=== PATIENT | male | born 1950 | race Caucasian/White ===

== ENCOUNTER → 2018-01-06 | Outpatient (CLI) | payer BC, MEDICARE ==
[~2018-01-06] MED LIST: VASOTEC20 MG PO
[2018-01-06 14:01] LABS: HEMOGLOBIN 14.4 g/dl (13.5-18.0); MEAN CELL VOLUME 86 fl (80.0-100.0); MEAN CORPUSCULAR HEMOGLOBIN 30 pg (27.0-31.0); MEAN CORPUSCULAR HGB CONC 34 g/dl (33.0-37.0); MEAN PLATELET VOLUME 11.9 fl (7.4-10.4); PLATELET COUNT 234 K/mm3 (130-400); RED BLOOD COUNT 4.88 M/mm3 (4.20-5.60); REDCELL DISTRIBUTION WIDTH-CV 13.2 % (11.5-14.5)
[2018-01-06 14:05] LABS: MUCOUS Present /lpf; PH 5 (5-8); SQUAMOUS EPITHELIAL None Seen /hpf; URINE APPEARANCE Clear; URINE BACTERIA None Seen /hpf; URINE BILIRUBIN Negative (NEGATIVE); URINE BLOOD 2+ (NEGATIVE); URINE COLOR Yellow; URINE GLUCOSE Negative (NEGATIVE); URINE KETONE 1+ (NEGATIVE); URINE LEUKOCYTE ESTERASE Negative (NEGATIVE); URINE NITRATE Negative (NEGATIVE); URINE PROTEIN(semi-quant) Negative (NEGATIVE); URINE WBC 0-2 /hpf
[2018-01-06 14:09] LABS: ALBUMIN 4.7 gm/dL (3.5-5.0); BILIRUBIN,TOTAL 1.7 mg/dL (0.0-1.0); CALCIUM 8.9 mg/dL (8.4-10.2); CREATININE, serum 1.14 mg/dL (0.66-1.25); POTASSIUM 3.4 mmol/L (3.4-5.0); TOTAL PROTEIN 7.7 gm/dL (6.4-8.2)
[2018-01-06 14:32] LABS: COLLECTION METHOD CLEAN CATCH
== END ==
LOC: COL.RAD 13:27
PROVIDERS: Emergency Medicine
DX: N32.89 Other specified disorders of bladder (principal); G20 Parkinson's disease
CPT/HCPCS: Q9967

== ENCOUNTER 2018-03-01 16:19 | Outpatient (CLI) | payer BC, MEDICARE ==
[~2018-03-01] VITALS: Ht 167.6 cm; Wt 80.0 kg
[2018-03-01] MEDS ORDERED: SINEMET CR1 UDTAB.S1 PO (17:55)
[2018-03-01] MEDS ORDERED: REQUIP2 MG PO (17:56)
[2018-03-01] MEDS ORDERED: HCTZ 25MG TAB25 MG PO (17:56)
[2018-03-01 18:00] VITALS: BP 158/81; PULSE 83; TEMP 98
== END 2018-03-01 20:00 | disposition home or self-care (01) ==
LOC: EUO 16:19
DX: R11.2 Nausea with vomiting, unspecified (principal)
CPT/HCPCS: J2405

== ENCOUNTER 2018-03-04 09:18 | Inpatient (IN) | payer BC, MEDICARE ==
[~2018-03-04] VITALS: Ht 165.1 cm; Wt 77.1 kg
[~2018-03-04 09:18] MED LIST changes: +HCTZ 25MG TAB25 MG PO; +REQUIP2 MG PO; +SINEMET CR1 UDTAB.S1 PO
[2018-03-04 09:56] LABS: BASO # 0.1 (0.0-0.2); BASO % 0.6 % (0.0-2.0); EOS % 0.1 % (0-4.0); GRAN # 7.9 (1.4-6.5); GRAN % 89.7 % (42.2-75.2); HEMATOCRIT 42.6 % (42.0-52.0); HEMOGLOBIN 14.9 g/dl (13.5-18.0); LYMPH # 0.5 (1.2-3.4); LYMPH % 5.6 % (20.0-51.0); MEAN CELL VOLUME 85 fl (80.0-100.0); MEAN CORPUSCULAR HEMOGLOBIN 30 pg (27.0-31.0); MEAN CORPUSCULAR HGB CONC 35 g/dl (33.0-37.0); MEAN PLATELET VOLUME 12.2 fl (7.4-10.4); MONO # 0.3 (0.1-0.6); MONO % 3.7 % (1.7-9.3); PLATELET COUNT 272 K/mm3 (130-400); RED BLOOD COUNT 5.04 M/mm3 (4.20-5.60); REDCELL DISTRIBUTION WIDTH-CV 14.1 % (11.5-14.5)
[2018-03-04 10:09] LABS: ALANINE AMINOTRANSFERASE 68 U/L (21-72); ALBUMIN 4.3 gm/dL (3.5-5.0); ALKALINE PHOSPHATASE 62 U/L (50-136); ANION GAP 16 mmol/L (7-16); AST,SGOT 45 U/L (15-37); BILIRUBIN,TOTAL 1.2 mg/dL (0.0-1.0); BLOOD UREA NITROGEN 41 mg/dL (9-20); CALCIUM 9.5 mg/dL (8.4-10.2); CARBON DIOXIDE 27 mmol/L (22-30); CHLORIDE 96 mmol/L (98-107); CREATININE, serum 1.56 mg/dL (0.66-1.25); GLUCOSE 140 mg/dL (74-106); LIPASE 67 U/L (23-300); POTASSIUM 3.2 mmol/L (3.4-5.0); SODIUM 138 mmol/L (137-145); TOTAL PROTEIN 8.1 gm/dL (6.4-8.2)
[2018-03-04 10:11] LABS: C-REACTIVE PROTEIN < 0.5 mg/dL (0.0-0.9)
[2018-03-04] MEDS ORDERED: ZOFRAN ODT4 MG PO (10:15)
[2018-03-04] MEDS ORDERED: PHENERGAN25 MG RC (10:15)
[2018-03-04] MEDS ORDERED: CELEBREX 200MG200 MG PO (10:15)
[2018-03-04 11:38] LABS: COLLECTION METHOD CLEAN CATCH
[2018-03-04 11:59] LABS: MUCOUS Present /lpf; PH 5 (5-8); SQUAMOUS EPITHELIAL 0-2 /hpf; URINE APPEARANCE Hazy; URINE BACTERIA None Seen /hpf; URINE BILIRUBIN Negative (NEGATIVE); URINE BLOOD 2+ (NEGATIVE); URINE COLOR Yellow; URINE GLUCOSE Negative (NEGATIVE); URINE KETONE Negative (NEGATIVE); URINE LEUKOCYTE ESTERASE Negative (NEGATIVE); URINE NITRATE Negative (NEGATIVE); URINE PROTEIN(semi-quant) 1+ (NEGATIVE)
[2018-03-04 13:12] VITALS: BP 178/88; PULSE 89; TEMP 98.7
[2018-03-04 15:54] VITALS: BP 149/55; PULSE 73; TEMP 98.3
[2018-03-04 16:26] VITALS: BP 159/81; PULSE 91; TEMP 99.1
[2018-03-04 20:28] VITALS: BP 92/54; PULSE 83; TEMP 99.1
[2018-03-05] VITALS (17 sets, daily range): BP systolic 95–195; BP diastolic 47–96; PULSE 66–80; TEMP 98.1–99.1
[2018-03-05 06:54] LABS: CALCIUM 8.2 mg/dL (8.4-10.2); CREATININE, serum 1.14 mg/dL (0.66-1.25); POTASSIUM 3.6 mmol/L (3.4-5.0)
[2018-03-06 04:51] VITALS: BP 180/88; PULSE 79; TEMP 99
[2018-03-06 06:24] LABS: BILIRUBIN UNCONJUGATED 1.5 mg/dL (0.0-1.1); BILIRUBIN,DIRECT 0.4 mg/dL (0.0-0.4); BILIRUBIN,TOTAL 1.9 mg/dL (0.0-1.0)
[2018-03-06 06:26] LABS: ALBUMIN 3.2 gm/dL (3.5-5.0); TOTAL PROTEIN 6.1 gm/dL (6.4-8.2)
[2018-03-06 06:29] VITALS: BP 170/92
[2018-03-06 07:31] VITALS: BP 179/92; PULSE 84; TEMP 98.7
[2018-03-06 12:37] VITALS: BP 185/92; PULSE 78; TEMP 99.4
[2018-03-06 16:22] VITALS: BP 128/69; PULSE 70; TEMP 99.1
[2018-03-06 19:40] VITALS: BP 123/55; PULSE 70; TEMP 98.7
[2018-03-07 00:07] VITALS: BP 110/60; PULSE 72; TEMP 98.5
[2018-03-07 04:09] VITALS: BP 160/96; PULSE 88; TEMP 98.7
[2018-03-07 07:20] VITALS: BP 183/89; PULSE 82; TEMP 98.2
[2018-03-07 10:50] VITALS: BP 179/86; PULSE 87; TEMP 98.4
[2018-03-07 15:24] VITALS: BP 137/78; PULSE 73; TEMP 98.6
[2018-03-07 20:30] VITALS: BP 123/68; PULSE 73; TEMP 97.9
[2018-03-08 00:10] VITALS: BP 138/70; PULSE 68; TEMP 98.2
[2018-03-08 03:56] VITALS: BP 174/79; PULSE 87; TEMP 98.2
[2018-03-08 07:27] VITALS: BP 186/97; PULSE 87; TEMP 98.6
[2018-03-08 11:15] VITALS: BP 177/89; PULSE 79; TEMP 99.1
[2018-03-08 16:18] VITALS: BP 107/68; PULSE 75; TEMP 98
[2018-03-08 19:58] VITALS: BP 109/65; PULSE 69; TEMP 98.2
[2018-03-09 04:13] VITALS: BP 155/82; PULSE 76; TEMP 97.7
[2018-03-09 07:33] VITALS: BP 185/97; PULSE 105; TEMP 98.6
[2018-03-09 11:29] VITALS: BP 180/87; PULSE 93; TEMP 98.6
[2018-03-09] MEDS ORDERED: BIAXIN 500MG T500 MG PO (14:10)
[2018-03-09] MEDS ORDERED: AMOXICILLIN 50500 MG PO (14:11)
[2018-03-09] MEDS ORDERED: NORVASC 5MG5 MG/TAB PO (14:13)
[2018-03-09] MEDS ORDERED: PROTONIX 40MG T40 MG PO (14:22)
[2018-03-09] MEDS ORDERED: LEADER CLE17 GM/Dose PO (14:24)
== END 2018-03-09 15:22 | DRG 392 ==
LOC: COL.ER 09:18 → SURG 12:19
PROVIDERS: Emergency Medicine; Internal Medicine Gastroenterology
PROC: 0DB68ZX Excision of Stomach, Via Natural or Artificial Opening Endoscopic, Diagnostic (ICD-10-PCS; principal; 2018-03-05 08:30)
DX: K29.30 Chronic superficial gastritis without bleeding (principal); N17.9 Acute kidney failure, unspecified; E44.0 Moderate protein-calorie malnutrition; B96.81 Helicobacter pylori [H. pylori] as the cause of diseases classified elsewhere; K29.60 Other gastritis without bleeding; E86.0 Dehydration; G20 Parkinson's disease; I10 Essential (primary) hypertension; E80.4 Gilbert syndrome; N20.0 Calculus of kidney
CPT/HCPCS: A9541; C9113; J1956; J2250; J2405; J3010; J3480; J7030

== ENCOUNTER 2018-03-09 15:40 | Inpatient (IN) | payer BC, MEDICARE ==
[~2018-03-09] VITALS: Ht 165.1 cm; Wt 78.5 kg
[~2018-03-09 15:40] MED LIST changes: +AMOXICILLIN 50500 MG PO; +BIAXIN 500MG T500 MG PO; +CELEBREX 200MG200 MG PO; +LEADER CLE17 GM/Dose PO; +NORVASC 5MG5 MG/TAB PO; +PHENERGAN25 MG RC; +PROTONIX 40MG T40 MG PO; +ZOFRAN ODT4 MG PO
[2018-03-09 16:19] VITALS: BP 93/52; PULSE 82; TEMP 98.6
[2018-03-09 17:00] VITALS: BP 93/52; PULSE 82; TEMP 98.6
[2018-03-09 21:52] VITALS: BP 102/65; PULSE 73; TEMP 98.2
[2018-03-10 06:10] VITALS: BP 127/83; PULSE 82; TEMP 98.7
[2018-03-10 16:37] VITALS: BP 95/52; PULSE 79; TEMP 98.4
[2018-03-11 06:19] VITALS: BP 125/68; PULSE 72; TEMP 98.4
[2018-03-11 17:18] VITALS: BP 103/55; PULSE 82; TEMP 97.9
[2018-03-12 06:10] VITALS: BP 134/86; PULSE 79; TEMP 98
[2018-03-12 15:23] VITALS: BP 88/47; PULSE 80; TEMP 97.7
[2018-03-13 06:00] VITALS: BP 98/61; PULSE 77; TEMP 98
[2018-03-13 14:50] VITALS: BP 99/49; PULSE 81; TEMP 97.4
[2018-03-13 21:00] VITALS: BP 122/53; PULSE 84; TEMP 97.1
[2018-03-14 06:19] VITALS: BP 153/83; PULSE 89; TEMP 98
[2018-03-14 18:25] VITALS: BP 100/56; PULSE 91; TEMP 98.4
[2018-03-15 03:47] VITALS: BP 106/53; PULSE 74; TEMP 98.1
[2018-03-15 16:33] VITALS: BP 91/50; PULSE 91; TEMP 98.2
[2018-03-16 05:29] VITALS: BP 131/65; PULSE 89; TEMP 97.2
[2018-03-16] MEDS ORDERED: VASOTEC 10M10 MG/TAB PO (07:52)
[2018-03-16] MEDS ORDERED: REQUIP 1MG T1 MG/TAB PO ×2 (07:52)
[2018-03-16] MEDS ORDERED: LAMISIL1% TP (07:52)
== END 2018-03-16 12:45 | disposition home or self-care (01) | DRG 57 ==
DX: G20 Parkinson's disease (principal); I10 Essential (primary) hypertension; K29.60 Other gastritis without bleeding; B96.81 Helicobacter pylori [H. pylori] as the cause of diseases classified elsewhere; R11.2 Nausea with vomiting, unspecified
CPT/HCPCS: 99222-AI; 99232-AI; 99238

== ENCOUNTER 2018-03-22 14:18 | Observation (INO) | payer BC, MEDICARE ==
[~2018-03-22] VITALS: Ht 165.1 cm; Wt 74.5 kg
[~2018-03-22 14:18] MED LIST changes: +LAMISIL1% TP; +REQUIP 1MG T1 MG/TAB PO; +VASOTEC 10M10 MG/TAB PO
[2018-03-22 14:51] LABS: BASO # 0.1 (0.0-0.2); BASO % 0.5 % (0.0-2.0); EOS % 0.2 % (0-4.0); GRAN # 11.3 (1.4-6.5); GRAN % 85.6 % (42.2-75.2); HEMOGLOBIN 13.2 g/dl (13.5-18.0); LYMPH # 0.9 (1.2-3.4); LYMPH % 6.4 % (20.0-51.0); MEAN CELL VOLUME 84 fl (80.0-100.0); MEAN CORPUSCULAR HEMOGLOBIN 29 pg (27.0-31.0); MEAN CORPUSCULAR HGB CONC 35 g/dl (33.0-37.0); MEAN PLATELET VOLUME 11.6 fl (7.4-10.4); MONO # 0.9 (0.1-0.6); MONO % 6.9 % (1.7-9.3); PLATELET COUNT 247 K/mm3 (130-400); RED BLOOD COUNT 4.52 M/mm3 (4.20-5.60); REDCELL DISTRIBUTION WIDTH-CV 13.7 % (11.5-14.5)
[2018-03-22 15:04] LABS: ALANINE AMINOTRANSFERASE 17 U/L (21-72); ALBUMIN 4.2 gm/dL (3.5-5.0); ALKALINE PHOSPHATASE 53 U/L (50-136); ANION GAP 14 mmol/L (7-16); AST,SGOT 22 U/L (15-37); BILIRUBIN,TOTAL 1.9 mg/dL (0.0-1.0); BLOOD UREA NITROGEN 42 mg/dL (9-20); CALCIUM 9.7 mg/dL (8.4-10.2); CARBON DIOXIDE 24 mmol/L (22-30); CHLORIDE 95 mmol/L (98-107); CREATININE, serum 2.37 mg/dL (0.66-1.25); GLUCOSE 134 mg/dL (74-106); PHOSPHOROUS 4.7 mg/dL (2.5-4.5); SODIUM 133 mmol/L (137-145); TOTAL PROTEIN 7.6 gm/dL (6.4-8.2)
[2018-03-22] MEDS ORDERED: REQUIP2 MG PO (15:08)
[2018-03-22] MEDS ORDERED: NORVASC2.5 MG PO (15:08)
[2018-03-22 15:14] LABS: TROPONIN-I < 0.012 ng/mL (0.000-0.034)
[2018-03-22 18:33] VITALS: BP 117/62; PULSE 77; TEMP 97.7
[2018-03-22 19:39] LABS: COLLECTION METHOD CLEAN CATCH
[2018-03-22 19:47] LABS: MUCOUS Present /lpf; PH 5 (5-8); SQUAMOUS EPITHELIAL 0-2 /hpf; URINE APPEARANCE Hazy; URINE BACTERIA Rare /hpf; URINE BILIRUBIN Negative (NEGATIVE); URINE BLOOD 1+ (NEGATIVE); URINE COLOR Yellow; URINE GLUCOSE Negative (NEGATIVE); URINE KETONE Trace (NEGATIVE); URINE LEUKOCYTE ESTERASE Negative (NEGATIVE); URINE NITRATE Negative (NEGATIVE); URINE PROTEIN(semi-quant) Negative (NEGATIVE); URINE RBC 0-2 /hpf; URINE UROBILINOGEN Negative (NEGATIVE)
[2018-03-22 20:42] VITALS: BP 78/45; PULSE 70
[2018-03-22 21:10] VITALS: BP 83/47
[2018-03-22 21:49] VITALS: BP 76/46; PULSE 65
[2018-03-22 23:13] VITALS: BP 81/41; PULSE 60; TEMP 98.1
[2018-03-23] VITALS (7 sets, daily range): BP systolic 89–137; BP diastolic 48–73; PULSE 57–91; TEMP 98.1–98.9
[2018-03-23 07:22] LABS: BASO # 0.1 (0.0-0.2); BASO % 1.4 % (0.0-2.0); EOS % 0.8 % (0-4.0); GRAN # 3.7 (1.4-6.5); GRAN % 74.1 % (42.2-75.2); HEMATOCRIT 38.1 % (42.0-52.0); HEMOGLOBIN 12.9 g/dl (13.5-18.0); LYMPH # 0.8 (1.2-3.4); LYMPH % 16.4 % (20.0-51.0); MEAN CELL VOLUME 87 fl (80.0-100.0); MEAN CORPUSCULAR HEMOGLOBIN 29 pg (27.0-31.0); MEAN CORPUSCULAR HGB CONC 34 g/dl (33.0-37.0); MONO # 0.4 (0.1-0.6); MONO % 7.1 % (1.7-9.3); PLATELET COUNT 211 K/mm3 (130-400); RED BLOOD COUNT 4.39 M/mm3 (4.20-5.60); REDCELL DISTRIBUTION WIDTH-CV 13.7 % (11.5-14.5)
[2018-03-23 07:31] LABS: CALCIUM 8.3 mg/dL (8.4-10.2); CREATININE, serum 1.26 mg/dL (0.66-1.25); MAGNESIUM 1.9 mg/dL (1.6-2.3); POTASSIUM 3.8 mmol/L (3.4-5.0)
[2018-03-24 00:22] VITALS: BP 122/66; PULSE 65; TEMP 98.7
[2018-03-24 04:50] VITALS: BP 109/67; PULSE 108; TEMP 98.6
[2018-03-24 07:43] LABS: CALCIUM 8.3 mg/dL (8.4-10.2); CREATININE, serum 0.92 mg/dL (0.66-1.25); POTASSIUM 3.6 mmol/L (3.4-5.0)
[2018-03-24 08:05] VITALS: BP 114/56; PULSE 75; TEMP 98.8
== END 2018-03-24 12:40 | disposition home or self-care (01) ==
LOC: COL.ER 14:18 → MEDICAL 16:41
PROVIDERS: Emergency Medicine; Internal Medicine; Nurse Practitioner Family
DX: R55 Syncope and collapse (principal); I95.9 Hypotension, unspecified; G20 Parkinson's disease; N17.9 Acute kidney failure, unspecified; D72.829 Elevated white blood cell count, unspecified; I10 Essential (primary) hypertension; E78.5 Hyperlipidemia, unspecified
CPT/HCPCS: G0378; G8978-GP; G8979-GP; G8987-GO; G8988-GO; J1644; J2405; J7030

== ENCOUNTER 2018-05-05 14:45 | Outpatient (RCR) | payer BC, MEDICARE ==
[~2018-05-05 14:45] MED LIST changes: +NORVASC2.5 MG PO
== END 2018-06-20 | disposition home or self-care (01) ==
LOC: MKS.ESL.PT
DX: G20 Parkinson's disease (principal)
CPT/HCPCS: G8978-GP; G8979-GP; G8980-GP

== ENCOUNTER 2023-07-08 08:17 | Inpatient (IN) | payer BC, MEDICARE, OTHER ==
[~2023-07-08] VITALS: Ht 162.6 cm; Wt 87.2 kg
[~2023-07-08 08:17] MED LIST changes: +AMOXICILLIN 8751 TAB PO; +ASPIRIN 32325 MG/TAB PO; +AZILECT1 MG PO; +CEFTIN500 MG PO; +CIPRO 500MG TA500 MG PO; +DULCOLAX S10 MG/SUPP RC; +FLOMAX 0.40.4 MG/CAP PO; +LOPRESSOR 225 MG/TAB PO; +ROXICODONE 55 MG/TAB PO; +SINEMET 25/101 UDTAB PO; +SINEMET CR 50 M1 TER PO; +TOPROL XL 25MG25 MG PO; +TYLENOL 500MG500 MG PO; +ULTRAM 50MG TAB50 MG PO
--- NOTE | 2023-07-08 10:54 | NUR ---
Patient arrived to the unit from Medical to room 339 via wheelchair. Patient alert and oriented with some confusion at times. Lungs CTA, bowel sounds active, pulses present, and pushes and final cigar and box examiner equal. Patient has scrapes on knees from falls. Noted asome redness at buttocks (blancheable ) and redness in the groin area. 2 closed blisters on left ramos. Hygiene performed, followed the the steps cleansed proceudre and applied barrier cream at excoriated area in the buttocks and groin region. Patient tolerated it well and oriented to room and the use of call roach. Bed alarm activated for safety.
--- NOTE | 2023-07-08 14:10 | NUR ---
Has lack of transportation kept you from medical appts, meetings, work, or from getting things needed for daily living? no How often do you feel lonely or isolated from those around you? rarely Over the past 5 days, how much of the time has pain made it hard for you to sleep? occasionally Over the past 5 days, how often have you limited your participation in therapy due to pain? rarely/not at all Over the past 5 days, how often have you limited your day-to-day activities because of pain? rarely/not at all Have you had 2 or more falls in the past year or any fall with an injury? yes Did you have major surgery during the 100 days prior to admission? no
[2023-07-08 17:00] VITALS: BP_SYST 135
[2023-07-08 17:29] VITALS: BP 135/68; PULSE 73; TEMP 98.6
--- NOTE | 2023-07-08 18:59 | NUR ---
RECEIVED CHANGE OF SHIFT FROM DAY SHIFT RN.
[2023-07-09 05:34] VITALS: BP 118/68; PULSE 69; TEMP 98.1
--- NOTE | 2023-07-09 07:08 | NUR ---
CHANGE OF SHIFT REPORT GIVEN TO DAY SHIFT RNDESIRE.
--- NOTE | 2023-07-09 16:30 | NUR ---
PATIENT AWAKE AND ALERT SITTING UP IN RECLINER. PATIENT DENIES ANY NEEDS OR COMPLAINTS AT THIS TIME. FALL PRECAUTIONS IN PLACE.
[2023-07-09 16:31] VITALS: BP 155/66; PULSE 62; TEMP 97.7
[2023-07-09 18:30] VITALS: BP_SYST 155
--- NOTE | 2023-07-09 20:25 | NUR ---
SHIFT ASSESSMENT COMPLETE. VSS. A&OX4. PATIENT UP IN CHAIR WATING TV. ALL NIGHT MEDS GIVEN ORDERED. PATIENT ONLY COMPLAINS OF BEING BORED. CHAIR ALARM ON AND CALL LIGHT IN REACH.
[2023-07-10 05:08] VITALS: BP 176/83; PULSE 57; TEMP 97.6
[2023-07-10 07:01] VITALS: BP_SYST 176
[2023-07-10 07:38] LABS: CALCIUM 8.8 mg/dL (8.4-10.2); CREATININE, serum 0.86 mg/dL (0.72-1.25); POTASSIUM 3.8 mmol/L (3.5-4.5)
--- NOTE | 2023-07-10 09:00 | NUR ---
Pt doing well this morning. He has had breakfast and did take a shower. Pt now sitting up in the chair. No needs at this time
--- NOTE | 2023-07-10 10:30 | NUR ---
Pt has been up to ambulate in the halls. Does well with standby assist using a walker. Pt has been using his call light often. Mentioned he wanted us to call someone to come in and cut his hair. Informed him that there is not anyone that we call to do that. He then stated whoever we call he wants them to be able to color his hair because he wants it black. Initially thought pt was joking, but he was serious. Informed him that I did not think that we would be able to get anyone to do that today. Pt back to sitting up in his chair. Chair alarm on, call light within reach.
[2023-07-10 12:34] VITALS: BP 124/53
--- NOTE | 2023-07-10 12:43 | NUR ---
Pt BP was high this morning. Rechecked after morning medications were given. BP within normal limits. Notified Dr Finney of elevated BP and the results after the morning medications
--- NOTE | 2023-07-10 14:03 | NUR ---
SW met with patient to complete intake. Patient states that he lives in [facility] with spouse Shelley [phone]. Patient provides that he does not utilize a walker at home, is independent with ADLs and does no utilize home health services at this time. PCP is Dr. Ku, and pharmacy is [facility]. Appointed DPOA\HC is spouse. Patient states he plans to return to his home upon DC. SW will continue to follow. DC plan: home
[2023-07-10 17:15] VITALS: BP 143/71; PULSE 74; TEMP 97.6
--- NOTE | 2023-07-10 19:28 | NUR ---
RECEIVED CHANGE OF SHIFT REPORT FROM DAY SHIFT RN.
[2023-07-11 05:12] VITALS: BP 114/55; PULSE 65; TEMP 97.8
--- NOTE | 2023-07-11 05:55 | NUR ---
PATIENT SLEPT UNTIL AFTER 0100, PATIENT UNABLE TO GO BACK TO SLEEP, BECAME RESTLESS IN BED AND WANTED TO WALK IN OTERO THEN SIT UP IN CHAIR, AROUND 0330 OR SO AND IS STILL AWAKE AT THIS TIME. DENIES ANY COMPLAINTS OR NEEDS. PATIENT VERY TALKATIVE WITH NURSING DURING ROUNDS. EXIT ALARM ON WHILE UP IN CHAIR, CALL LIGHT IN REACH.
[2023-07-11 07:00] VITALS: BP_SYST 114
--- NOTE | 2023-07-11 07:23 | NUR ---
CHANGE OF SHIFT REPORT GIVEN TO DAY SHIFT RNCARL.
--- NOTE | 2023-07-11 08:00 | NUR ---
Patient sitting up in chair with some confusion, stating " I don't like my hair color red/ortiz and wants to dye hair black". and Patient denies pain at this time. See process intervention for notes.
--- NOTE | 2023-07-11 10:00 | NUR ---
Received shift report from the night nurseRadha RN.
--- NOTE | 2023-07-11 12:57 | NUR ---
Admission QIM scores were reviewed by the team. Code of 4 chosen for toileting hygiene was determined by team discussion to be the most usual performance for this patient during the discharge assessment period. Code of 4 chosen for putting on/taking off footwear was determined by team discussion to be the most usual performance before interventions for this patient during the assessment period. Code of 4 chosen for sit to lying was determined by team discussion to be the most usual performance before interventions for this patient during the assessment period. Code of 4 chosen for lying to sitting side of bed was determined by team discussion to be the most usual performance before interventions for this patient during the assessment period. Code of 4 chosen for sit to stand was determined by team discussion to be the most usual performance for this patient during the discharge assessment period.--Xochitl Umanzor, PD
--- NOTE | 2023-07-11 13:42 | NUR ---
Denture Waxer was contacted by APS worker, Shameka who requests Patient's admission status. LISA informed Shameka that Patient is currently admitted to [facility] room 339.
--- NOTE | 2023-07-11 15:21 | NUR ---
Networking Technician collaborated with APS worker Shameka to meet with Patient. APS worker reviewed Patient's circumstances with his fall at home. LISA and Shameka briefed Patient of lifeline services and recommend that the service be established prior to discharge to increase Patietn's saftey at home. LISA briefed Patient of in home care to further assist Patient at home.
[2023-07-11 19:00] VITALS: BP_SYST 148
[2023-07-11 19:06] VITALS: BP 148/73; PULSE 63; TEMP 98.4
--- NOTE | 2023-07-11 21:00 | NUR ---
PT A&O LAYING IN BED WATCHING TV. FALL PRECAUTIONS IN PLACE & CALL LIGHT IN REACH. PT IS DENYING FURTHER NEEDS AT THIS POINT.
--- NOTE | 2023-07-12 03:25 | NUR ---
PT SLEPT UNTIL 0130 & STATES HE IS UNABLE TO GO BACK TO SLEEP BECAUSE HE SLEPT MOST OF THE DAY. PT IS DENYING FURTHER NEEDS AT THIS TIME. FALL PRECAUTIONS IN PLACE & CALL LIGHT IN REACH.
[2023-07-12 05:44] VITALS: BP 108/51; PULSE 60; TEMP 97.5
[2023-07-12 07:06] VITALS: BP_SYST 108
--- NOTE | 2023-07-12 07:06 | NUR ---
Shift report received from casino shift manager RN. Pt awake & sitting up in bed. Pt is expecting a visit from Adult Protective Services today to discuss his fall at home prior to his admission. Pt reports feeling angry & is worried about how his will feel about the visit. He denies other needs at this time. Call light in reach. Bed alarm is on.
--- NOTE | 2023-07-12 10:32 | NUR ---
Initial visit; Patient thanked Inventory Specialist for looking in on him and keeping him in her prayers. Inventory Specialist offered God's blessings and will follow up with patient tomorrow by request from him.
--- NOTE | 2023-07-12 10:50 | NUR ---
Pt is off the unit for Group Therapy.
--- NOTE | 2023-07-12 12:36 | NUR ---
Pt sitting up in the recliner to eat lunch independently. was here for approx 15-20 minutes & visited w/ SW. Pt denies pain/discomfort. Denies other needs. Call light in reach. Chair alarm is on.
--- NOTE | 2023-07-12 12:55 | NUR ---
Manager Cosmetics met with Patient and at bedside to discuss establishing lifeline services when discharged to assist with Patient's saftey at home. SW and , Shelley reviewed options for lifeline servicing providers. Shelley reports that she will continue to review options for selection of services.
--- NOTE | 2023-07-12 14:54 | NUR ---
Pt up to ambulate in hallway w/ OT.
[2023-07-12 17:23] VITALS: BP 127/56; PULSE 69; TEMP 98.2
--- NOTE | 2023-07-12 17:32 | NUR ---
Pt sitting up in the recliner watching tv. He ate 100% of dinner independently. Pain/discomfort denied. BLE elevated on the footrest. Other needs denied. Call light in reach. Chair alarm is on.
[2023-07-12 19:00] VITALS: BP_SYST 127
--- NOTE | 2023-07-12 20:00 | NUR ---
PT IN BED, IS ALERT AND ORIENTED X4. SCHEDULED SINEMET GIVEN AND LOVENOX SQ. PT DENIES NEEDS. HAS HEALING SCRAPES/ABRASIONS TO KNEES. ASSISTED WITH MOVING UP IN THE BED. VOIDING PER URINAL WITHOUT PROBLEM.
--- NOTE | 2023-07-13 03:30 | NUR ---
PT AWAKENED FOR SINEMET. INCONTINENT OF URINE, LINENS CHANGED, PERICARES GIVEN AND ASSISTED BACK TO BED.
[2023-07-13 06:13] VITALS: BP 127/81; PULSE 65; TEMP 97.9
[2023-07-13 06:39] VITALS: BP_SYST 127
--- NOTE | 2023-07-13 06:40 | NUR ---
Shift report received from shuttle operator RN. Pt had an episode of urine incontinence overnight & is looking forward to a shower this morning. No other events reported overnight. Pt awake & sitting up in bed listening to music on his phone. Pain/discomfort denied. Other needs denied. Call light in reach. Bed alarm is on.
--- NOTE | 2023-07-13 09:06 | NUR ---
Late Entry from 07-12-23 Head Banquet Waiter/Waitress was contacted by Patient's , Shelley to discuss lifeline monitoring options. Shelley states that she intends to order the monitoring services in hopes that it arrives prior to discharge. Head Banquet Waiter/Waitress inquired about scheduling a family meeting with the Patient and interdisciplinary team this week. Shelley requests family meeting scheduled at 1400 on , 07-14-23.
--- NOTE | 2023-07-13 15:41 | NUR ---
Pt sitting up in the recliner w/ BLE elevated on the footrest. Pt has had no c/o pain throughout the shift today. Pt participated in all therapies today. Pt denies any needs at this time. Call light in reach. Chair alarm is on.
--- NOTE | 2023-07-13 16:24 | NUR ---
Primer Assembler met with Patient at bedside to review team conference notes from this AM. SW reviewed progress towards treatment goals, barriers and interventions, and discharge planning with Patient. Patient is anticipated to discharge on Tuesday07-14-23 with Home Health PT/OT.
--- NOTE | 2023-07-13 16:33 | NUR ---
Pt visiting w/ his . Denies any needs. Call light in reach. Chair alarm on.
[2023-07-13 17:13] VITALS: BP 129/54; PULSE 63; TEMP 98.5
--- NOTE | 2023-07-13 19:10 | NUR ---
RECEIVED CHANGE OF SHIFT REPORT FROM DAY SHIFT RN. PATIENT UP IN CHAIR DURING REPORT, EXIT ALARM ON, CALL LIGHT IN REACH. DENIES ANY NEEDS AT TIME OF REPORT.
--- NOTE | 2023-07-14 03:21 | NUR ---
PATIENT SLEEPING, DOES NOT WAKE ON NURSING ROUNDS. OBSERVED BREATHING NONLABORED AND EVEN. EXIT ALARM ON WITH CALL LIGHT IN REACH.
[2023-07-14 03:55] VITALS: BP 122/60; PULSE 60; TEMP 97.9
[2023-07-14 07:13] VITALS: BP_SYST 122
--- NOTE | 2023-07-14 07:13 | NUR ---
CHANGE OF SHIFT REPORT GIVEN TO DAY SHIFT RNRENU.
--- NOTE | 2023-07-14 07:14 | NUR ---
Shift report received from bun machine operator RN. Pt awake & sitting up in bed. No events reported overnight. Call light in reach. Bed alarm is on.
--- NOTE | 2023-07-14 10:37 | NUR ---
Pt is off the unit for PT.
--- NOTE | 2023-07-14 12:23 | NUR ---
Pt sitting up in the recliner eating lunch independently. Pain/discomfort denied. Other needs denied. Call light in his reach. Chair alarm is on.
--- NOTE | 2023-07-14 13:51 | NUR ---
Has lack of transportation kept you from medical appts, meetings, work, or from getting things needed for daily living? NO How often do you feel lonely or isolated from those around you? RARELY Over the past 5 days, how much of the time has pain made it hard for you to sleep? RARELY/NOT AT ALL Over the past 5 days, how often have you limited your participation in therapy due to pain? RARELY/NOT AT ALL Over the past 5 days, how often have you limited your day-to-day activities because of pain? RARELY/NOT ALL
--- NOTE | 2023-07-14 14:38 | NUR ---
Specimen Accessioner and SW student collaborated with interdisciplinary team to conduct Family Meeting with Patient and , Shelley. Disciplines briefed progress towards treatment goals. SW briefed discharge plan. Patient is anticipated to discharge home tomorrow with Home Health. LISA provided Medicare.gov list of HH agencies. Patient and Shelley select [facility] stating that they have always used them in the past. LISA sent abel with [facility] referral for PT/OT.
--- NOTE | 2023-07-14 15:07 | NUR ---
Pt sitting up in the recliner w/ BLE elevated on the footrest. His was here to visit. He is looking forward to discharging tomorrow. Pt denies pain/discomfort. Denies any needs. Call light in reach. Chair alarm is on.
[2023-07-14 17:01] VITALS: BP 122/59; PULSE 69; TEMP 99.2
--- NOTE | 2023-07-14 18:29 | NUR ---
Pt supervised as he stood from recliner to FWW & ambulated to bed. Pt able to get into bed independently. Pain/discomfort denied. Call light in reach. Bed alarm is on.
--- NOTE | 2023-07-14 21:20 | NUR ---
Patient assessed at this time, see shift assessment, denies pain or discomfort, noted tremors both upper extremities, pills given and take them whole without any difficulty, denies further needs, call light and personal items within reach, fall precautions in place, bed alarm on.
--- NOTE | 2023-07-14 23:49 | NUR ---
Patient incontinent of urine at this time, complete bed change done, instructed to call whenever he wants to void.
--- NOTE | 2023-07-14 23:49 | NUR ---
Patient incontinent of urine at this time, complete bed changed done, pericare provided.
[2023-07-15 05:26] VITALS: BP 127/61; PULSE 62; TEMP 97.9
[2023-07-15 07:00] VITALS: BP_SYST 127
[2023-07-15] MEDS ORDERED: TOPROL XL 25MG25 MG PO (08:34)
[2023-07-15] MEDS ORDERED: DITROPAN 5MG TAB5 MG PO (08:36)
[2023-07-15] MEDS ORDERED: ZESTRIL2.5 MG PO (08:36)
--- NOTE | 2023-07-15 10:10 | NUR ---
Programmer and SW student met with Patient at bedside to conduct Medicare IM brief and discuss discharge planning. Patient acknowledges brief and signs form. Original placed in chart, copy provided to Patient. Patient will discharge home today with [facility] has accepted Patient for services.
--- NOTE | 2023-07-15 10:17 | NUR ---
PATIENT ALERT AND ORIENTED X4. VSS. PATIENT HERE FOR ISSUES R/T DEBILITY. PATIENT DENIES ANY PAIN AT THIS TIME. K PROTOCOL IN PLACE, REPLACED X1. PATIENT DENIES ANY FURTHER NEEDS. CALL LIGHT IN REACH, BED ALARM ON.
--- NOTE | 2023-07-15 12:20 | NUR ---
Purchasing Administrator sent discharge orders to [facility].
--- NOTE | 2023-07-15 16:04 | NUR ---
Discharge QIM scores were reviewed by the team. Code of 6 chosen for toileting hygiene was determined by team discussion to be the most usual performance for this patient during the discharge assessment period. Code of 6 chosen for toilet transfers was determined by team discussion to be the most usual performance for this patient during the discharge assessment period. Code of 6 chosen for lower body dressing was determined by team discussion to be the most usual performance for this patient during the discharge assessment period. Code of 6 chosen for putting on/taking off footwear was determined by team discussion to be the most usual performance for this patient during the discharge assessment period. Code of 6 chosen for lying to sitting was determined by team discussion to be the most usual performance for this patient during the discharge assessment period. Code of 6 chosen for sit to stand was determined by team discussion to be the most usual performance for this patient during the discharge assessment period. Code of 6 chosen for chair to bed was determined by team discussion to be the most usual performance for this patient during the discharge assessment period. Code of 6 chosen for walking 10 feet was determined by team discussion to be the most usual performance for this patient during the discharge assessment period. Code of 6 chosen for walking 50 feet w/ 2 turns was determined by team discussion to be the most usual performance before interventions for this patient during the discharge assessment period. Code of 6 chosen for walking 150 feet was determined by team discussion to be the most usual performance for this patient during the discharge assessment period.--PD Alexandre
--- NOTE | 2023-07-15 16:48 | NUR ---
DISCHARGE INSTRUCTIONS PROVIDED. PATIENT EDUCATION GIVEN. FOLLOW UP APPOINTMENTS DISCUSSED. MEDICATIONS REVIEWED. PATIENT AND DENY AND QUESTIONS OR CONCERNS. PATIENT AND BELONGINGS ESCORTED OUT VIA WHEELCHAIR.
== END 2023-07-15 16:49 | disposition home health service (06) | DRG 56 ==
PROVIDERS: Internal Medicine; ADMIT Physical Medicine & Rehabilitation Sports Medicine
DX: G20 Parkinson's disease (principal); I21.A1 Myocardial infarction type 2; M62.82 Rhabdomyolysis; R26.89 Other abnormalities of gait and mobility; N28.9 Disorder of kidney and ureter, unspecified; I10 Essential (primary) hypertension; N40.0 Benign prostatic hyperplasia without lower urinary tract symptoms; W01.198D Fall on same level from slipping, tripping and stumbling with subsequent striking against other object, subsequent encounter; Z74.09 Other reduced mobility; Z79.899 Other long term (current) drug therapy; Z96.651 Presence of right artificial knee joint; Y92.009 Unspecified place in unspecified non-institutional (private) residence as the place of occurrence of the external cause; R32 Unspecified urinary incontinence
CPT/HCPCS: A9284; J1650

== ENCOUNTER 2024-05-01 15:17 | Observation (INO) | payer BC, MEDICARE, OTHER ==
[~2024-05-01] VITALS: Ht 165.1 cm; Wt 88.6 kg
[~2024-05-01 15:17] MED LIST changes: +DITROPAN 5MG TAB5 MG PO; +PRINIVIL2.5 MG PO; +ZESTRIL2.5 MG PO
[2024-05-01] MEDS ORDERED: NS 500 ML IV ONE (16:00)
[2024-05-01 16:04] LABS: BASO # 0.1 K/mm3 (0.0-0.2); BASO % 0.8 % (0.0-2.0); EOS # 0.1 K/mm3 (0.0-0.7); EOS % 0.5 % (0.0-4.0); GRAN # 13.6 K/mm3 (1.4-6.5); GRAN % 89.6 % (42.2-75.2); HEMATOCRIT 41.8 % (42.0-52.0); HEMOGLOBIN 13.6 g/dl (13.5-18.0); LYMPH # 0.5 K/mm3 (1.2-3.4); LYMPH % 3.3 % (20.0-51.0); MEAN CELL VOLUME 86 fl (80.0-100.0); MEAN CORPUSCULAR HEMOGLOBIN 28 pg (27-31); MEAN CORPUSCULAR HGB CONC 33 g/dl (33.0-37.0); MEAN PLATELET VOLUME 10.5 fl (7.4-10.4); MONO # 0.8 K/mm3 (0.1-0.6); MONO % 5.4 % (1.7-9.3); PLATELET COUNT 500 K/mm3 (130-400); RED BLOOD COUNT 4.89 M/mm3 (4.20-5.60); REDCELL DISTRIBUTION WIDTH-CV 15.9 % (11.5-14.5)
[2024-05-01 16:17] LABS: ALBUMIN 4.3 g/dL (3.4-4.8); BILIRUBIN,TOTAL 1.7 mg/dL (0.2-1.2); CALCIUM 8.9 mg/dL (8.4-10.2); CREATININE, serum 1.28 mg/dL (0.72-1.25); POTASSIUM 3.9 mEq/L (3.5-4.5); TOTAL PROTEIN 7.9 g/dl (6.2-8.1)
[2024-05-01 16:26] LABS: COLLECTION METHOD CLEAN CATCH
[2024-05-01 16:35] LABS: PH 5.5 (5.0-8.5); URINE APPEARANCE CLEAR (CLEAR/HAZY); URINE BLOOD 2+ (NEGATIVE); URINE COLOR YELLOW (YELLOW); URINE GLUCOSE NEGATIVE (NEGATIVE); URINE KETONE 1+ (NEGATIVE); URINE NITRATE NEGATIVE (NEGATIVE); URINE PROTEIN(semi-quant) 1+ (NEGATIVE)
[2024-05-01] MEDS ORDERED: D5 1/2 NS 1,000 ML IV SCH (19:30)
[2024-05-01] MEDS ORDERED: Ondansetron 4 MG/2 ML VIAL IV PRN (19:30)
[2024-05-01] MEDS ORDERED: Acetaminophen 325 MG TAB PO PRN (19:30)
[2024-05-01] MEDS ORDERED: TOPROL XL 25MG25 MG PO (22:46)
[2024-05-01] MEDS ORDERED: Carbidopa/Levodopa 25-250 MG TAB PO SCH (23:30)
[2024-05-02] VITALS (11 sets, daily range): BP systolic 134–164; BP diastolic 65–84; PULSE 67–78; TEMP 97.4–98.4
[2024-05-02] MEDS ORDERED: Carbidopa/Levodopa CR 25-100MG TAB PO SCH (00:30)
--- NOTE | 2024-05-02 00:39 | NUR ---
PT ARRIVED TO THE UNIT AROUND 2114 ACCOMPANIED BY HIS , PATIENT WAS TRANSFERRED TO BED FROM [facility] WITH THE ASSISTANCE OF 3 STAFF MEMBERS. PT DOES WELL TURNING SIDE TO SIDE AND MOVING UP IN THE BED NEEDED. HAND GRASPS ARE STONG AND ALERT AND ORIENTED X2, COULD NOT RECALL THE DATE. PT GAVE MOST OF THE PT MEDICAL HX PT WAS NOT ABLE TO. USED THE URINAL AND REQUESTED FOOD TO EAT HE HADNT EATEN ALL DAY PER PT REPORT. ASSESSED AND HS MEDS GIVEN, DENIES PAIN AT THIS TIME. FALL PRECAUTIONS IN PLACE, BED ALARM ENGAGED.
[2024-05-02 06:43] LABS: BASO # 0.1 K/mm3 (0.0-0.2); BASO % 1.4 % (0.0-2.0); EOS # 0.2 K/mm3 (0.0-0.7); EOS % 2.7 % (0.0-4.0); GRAN # 6.9 K/mm3 (1.4-6.5); GRAN % 76.5 % (42.2-75.2); HEMATOCRIT 40.2 % (42.0-52.0); LYMPH # 0.9 K/mm3 (1.2-3.4); LYMPH % 9.9 % (20.0-51.0); MEAN CELL VOLUME 88 fl (80.0-100.0); MEAN CORPUSCULAR HEMOGLOBIN 29 pg (27-31); MEAN CORPUSCULAR HGB CONC 32 g/dl (33.0-37.0); MEAN PLATELET VOLUME 10.7 fl (7.4-10.4); MONO # 0.8 K/mm3 (0.1-0.6); MONO % 9.1 % (1.7-9.3); PLATELET COUNT 425 K/mm3 (130-400); RED BLOOD COUNT 4.55 M/mm3 (4.20-5.60); REDCELL DISTRIBUTION WIDTH-CV 15.9 % (11.5-14.5)
--- NOTE | 2024-05-02 07:00 | NUR ---
awake resting in bed,bedside shift report received from TOI Zaragoza
[2024-05-02 07:10] LABS: ALBUMIN 3.3 g/dL (3.4-4.8); BILIRUBIN,TOTAL 1.7 mg/dL (0.2-1.2); CALCIUM 8.5 mg/dL (8.4-10.2); CREATININE, serum 1.03 mg/dL (0.72-1.25); POTASSIUM 3.7 mEq/L (3.5-4.5); TOTAL PROTEIN 6.2 g/dl (6.2-8.1)
[2024-05-02 07:23] LABS: MAGNESIUM 2.1 mg/dL (1.6-2.6)
[2024-05-02 07:33] LABS: THYROID STIMULATING HORMONE 1.009 uIU/mL (0.350-4.940)
[2024-05-02 07:37] LABS: TROPONIN-I 6 HR POST INITIAL 0.054 ng/mL (0.00-0.033)
--- NOTE | 2024-05-02 07:50 | NUR ---
resting in bed, full assessment completed, see interventions for further info, denies pain or needs at this time
[2024-05-02] MEDS ORDERED: SINEMET 25/101 UDTAB PO (08:56)
[2024-05-02] MEDS ORDERED: Sennosides/Docusate 8.6-50 MG TAB PO SCH (09:00)
[2024-05-02] MEDS ORDERED: Pantoprazole 40 MG in NS 10 ML IV SCH (09:00)
--- NOTE | 2024-05-02 09:00 | NUR ---
watching TV and visiting with , med rec completed with , patient denies needs
--- NOTE | 2024-05-02 10:19 | NUR ---
LISA met with patient and to complete initial assessment for discharge planning. [place] with his /ELBA Rosa ([phone]). Patient sees Dr. Nava as his PCP and uses [facility] pharmacy. Patient has a walker, wheelchair, canes, shower chair and grab bars at home. reports patient being independent with all activities until three days ago. Patient has had increased anxiety and restlessness over past several days per report. Patient has a history with [facility] and [facility]. Discharge needs uncertain at this time and will be dependent upon plan of care and therapy evaluations. Discharge plan: TBD
--- NOTE | 2024-05-02 10:27 | NUR ---
Initial visit; Patient and his very nice people to talk with. Patient waiting for test results and/or talk with his Physician so he can see what he is confronting. Both wanted prayer so Police Patrol Lieutenant prayed with them for discernment and continued healing.
--- NOTE | 2024-05-02 11:03 | NUR ---
Dr Cosme and care team in to see patient and then Dr Davidson also in to see patient, remains at bedside
--- NOTE | 2024-05-02 11:40 | NUR ---
physical therapy in and assisted patient up to bathroom and will try to have a bowel movement
--- NOTE | 2024-05-02 12:51 | NUR ---
bedside shift report given to TOI Muniz
[2024-05-02] MEDS ORDERED: hydrALAZINE 20 MG/ML 1 ML VIAL IV PRN (17:00)
--- NOTE | 2024-05-02 21:07 | NUR ---
PT USING THE URINAL AT THIS TIME. NO SIGN OF DISTRESS. RESPIRATIONS EVEN AND UNLABORED.
[2024-05-03] VITALS (13 sets, daily range): BP systolic 131–177; BP diastolic 71–84; PULSE 67–77; TEMP 97.5–98.3
--- NOTE | 2024-05-03 00:41 | NUR ---
PT STABLE ON ROUNDS. PT ASSISTED TO BATHROOM WITH GAIT BELT AND WALKER. PT HAS A RASH TO BUTTOCKS. SKIN BARRIER CREAM APPLIED. NO SIGN OF DISTRESS AT THIS TIME.
--- NOTE | 2024-05-03 05:55 | NUR ---
PT RESTLESS OVERNIGHT. PRN CARDOPA/LEVODOPA GIVEN X1. PT HAS DIFFICULTY AMBULATING IN GRIPPER SOCKS. PT AMBULATED WITH HIS SHOES ON THIS MORNING. PTS GAIT IMPROVED WITH SHOES ON. PT UP IN CHAIR THIS MORNING. AMBULATED IN THE OTERO. RESPIRATTIONS EVEN AND UNLABORED. NO SIGN OF DISTRESS AT THIS TIME. PT USES CALL LIGHT. CONTINUE PLAN OF CARE.
[2024-05-03 06:39] LABS: BASO # 0.2 K/mm3 (0.0-0.2); BASO % 1.8 % (0.0-2.0); EOS # 0.3 K/mm3 (0.0-0.7); EOS % 4.1 % (0.0-4.0); GRAN # 6.4 K/mm3 (1.4-6.5); GRAN % 76.9 % (42.2-75.2); HEMATOCRIT 39.3 % (42.0-52.0); LYMPH # 0.7 K/mm3 (1.2-3.4); LYMPH % 8.3 % (20.0-51.0); MEAN CELL VOLUME 87 fl (80.0-100.0); MEAN CORPUSCULAR HEMOGLOBIN 29 pg (27-31); MEAN CORPUSCULAR HGB CONC 33 g/dl (33.0-37.0); MEAN PLATELET VOLUME 11.8 fl (7.4-10.4); MONO # 0.7 K/mm3 (0.1-0.6); MONO % 8.7 % (1.7-9.3); PLATELET COUNT 318 K/mm3 (130-400); RED BLOOD COUNT 4.53 M/mm3 (4.20-5.60); REDCELL DISTRIBUTION WIDTH-CV 15.9 % (11.5-14.5)
[2024-05-03 07:01] LABS: ALBUMIN 3.2 g/dL (3.4-4.8); BILIRUBIN,TOTAL 0.9 mg/dL (0.2-1.2); CREATININE, serum 0.95 mg/dL (0.72-1.25); TOTAL PROTEIN 6.7 g/dl (6.2-8.1)
--- NOTE | 2024-05-03 08:16 | NUR ---
PATIENT SITTING UP IN RECLINER UPON ENTERING ROOM. MORNING MEDICATIONS ADMINISTERED. SHIFT ASSESSMENT COMPLETED. PATIENT DENIES ANY PAIN THIS MORNING. IVF INFUSING. PATIENT IS EAGER TO GET UP AND WALK THE UNIT AND TAKE A SHOWER. CHAIR ALARM IN PLACE, CALL LIGHT WITHIN REACH. WILL CONTINUE TO MONITOR.
--- NOTE | 2024-05-03 10:54 | NUR ---
LISA met with pt to discuss Home Health for him upon discharge. LISA provided Medicare.gov list. He informed SW to talk with his , Shelley who was walking around. SW later found and updated her on the above. She reports wanting to see pt walk today as she cannot lift him and then she will decide. She was informed by other staff that PT/OT was short staffed so they might not be able to see him until tomorrow. is going to talk to Dr. Cosme then will decide and call LISA about what they would like to do. Discharge Plan: home with [facility]
[2024-05-03] MEDS ORDERED: D5 1/2 NS 1,000 ML IV SCH (14:30)
[2024-05-04 03:56] VITALS: BP 179/88; PULSE 70; TEMP 97.9
[2024-05-04 04:02] VITALS: BP_SYST 179
[2024-05-04 05:23] VITALS: BP 160/82
--- NOTE | 2024-05-04 05:56 | NUR ---
Patient up in room 1 assist with walker. Ambulates to bathroom. Requesting to sit in recliner. Assisted to recliner at this time. Patient is anxious to get results from lab draw-states he just wants to go home. Did not sleep much over night. Had some elevated blood pressures that were treated with PRN hydralazine. IV fluids still infusing to left forearm INT. Denies current questions/concerns. Call light in reach. will monitor.
[2024-05-04 06:19] LABS: BASO # 0.2 K/mm3 (0.0-0.2); EOS # 0.4 K/mm3 (0.0-0.7); EOS % 5.4 % (0.0-4.0); GRAN # 5.7 K/mm3 (1.4-6.5); GRAN % 75.1 % (42.2-75.2); HEMATOCRIT 41.9 % (42.0-52.0); HEMOGLOBIN 13.8 g/dl (13.5-18.0); LYMPH # 0.8 K/mm3 (1.2-3.4); MEAN CELL VOLUME 87 fl (80.0-100.0); MEAN CORPUSCULAR HEMOGLOBIN 29 pg (27-31); MEAN CORPUSCULAR HGB CONC 33 g/dl (33.0-37.0); MEAN PLATELET VOLUME 10.9 fl (7.4-10.4); MONO # 0.5 K/mm3 (0.1-0.6); MONO % 6.4 % (1.7-9.3); RED BLOOD COUNT 4.83 M/mm3 (4.20-5.60); REDCELL DISTRIBUTION WIDTH-CV 15.6 % (11.5-14.5)
[2024-05-04 06:34] LABS: PLATELET COUNT 461 K/mm3 (130-400)
[2024-05-04 06:47] LABS: ALBUMIN 3.3 g/dL (3.4-4.8); BILIRUBIN,TOTAL 0.8 mg/dL (0.2-1.2); CALCIUM 8.1 mg/dL (8.4-10.2); CREATININE, serum 0.87 mg/dL (0.72-1.25); POTASSIUM 3.8 mEq/L (3.5-4.5)
[2024-05-04 08:15] VITALS: BP 118/67; PULSE 67; TEMP 97.6
[2024-05-04 09:04] VITALS: BP_SYST 118
--- NOTE | 2024-05-04 09:07 | NUR ---
SHIFT ASSESSMENT COMPLETED AT THIS TIME. MEDCICATION ADMINISTERED AT THIS TIME. NURSING STAFF D/C'D INT IN LEFT WRIST AND INSERTED A 20G IN THE RIGHT FOREARM. PT REQUESTS TO GO HOME TODAY, NURSING STAFF PROVIDED EDUCATION REGARDING DOCTOR ROUNDS SHORTLY. NO FURTHER COMPLAINTS AT THIS TIME. BED ALARM ON, CALL LIGHT WITHIN REACH.
--- NOTE | 2024-05-04 10:45 | NUR ---
Agree with FIDENCIO Bundy assessment of the patient. Patient is wanting to go home today. Dcotor aware. Call light within reach
[2024-05-04 12:47] VITALS: BP_SYST 118
--- NOTE | 2024-05-04 13:50 | NUR ---
PATIENT DISCHARGED INSTRUCTIONS/EDUCATION PROVIDED AT THIS TIME. AT BEDSIDE. BOTH VOICE NO QUESTIONS OR CONCERNS. INT DC'D. PT TRANSPORT[facility] AT [facility] FAM[facility].
--- NOTE | 2024-05-04 13:58 | NUR ---
Broadcast Chief Engineer contacted patient's , Shelley to follow up on HH. Shelley advised they would like a referral sent to [facility]. LISA Fletcher faxed referral and orders to [facility]. LISA followed up with Jose at [facility] who confirmed it was received and that they can accept.
--- NOTE | 2024-05-07 12:57 | NUR ---
clinical social worker contacted Filipe with [facility] and confirmed discharge and faxed orders. Filipe stated they will admit patient.
== END 2024-05-04 13:50 | disposition home health service (06) ==
LOC: COL.ER 15:17 → MEDICAL 19:23
PROVIDERS: Personal Emergency Response Attendant; Physician Assistant; ADMIT Internal Medicine
DX: R41.82 Altered mental status, unspecified (principal); R79.89 Other specified abnormal findings of blood chemistry; M62.82 Rhabdomyolysis; D72.829 Elevated white blood cell count, unspecified; G20.A1 Parkinson's disease without dyskinesia, without mention of fluctuations; R11.0 Nausea; I10 Essential (primary) hypertension; T67.01XA Heatstroke and sunstroke, initial encounter; R94.4 Abnormal results of kidney function studies; Z79.899 Other long term (current) drug therapy; Z96.82 Presence of neurostimulator
CPT/HCPCS: G0378; J0360; J1650; J2470; J7040

== ENCOUNTER 2024-09-28 06:06 | Emergency (ER) | payer BC, MEDICARE, OTHER ==
[~2024-09-28] VITALS: Ht 165.1 cm; Wt 93.6 kg
[2024-09-28 06:08] VITALS: TEMP 98.1
[2024-09-28 06:14] LABS: COLLECTION METHOD CLEAN CATCH
[2024-09-28] MEDS ORDERED: Morphine 4 MG/ML VIAL IV ONE (06:15)
[2024-09-28 06:29] LABS: PH 6.5 (5.0-8.5); URINE APPEARANCE CLEAR (CLEAR/HAZY); URINE BLOOD NEGATIVE (NEGATIVE); URINE COLOR YELLOW (YELLOW); URINE GLUCOSE NEGATIVE (NEGATIVE); URINE KETONE NEGATIVE (NEGATIVE); URINE NITRATE NEGATIVE (NEGATIVE); URINE PROTEIN(semi-quant) NEGATIVE (NEGATIVE)
[2024-09-28 06:41] LABS: BASO # 0.2 K/mm3 (0.0-0.2); BASO % 1.9 % (0.0-2.0); EOS # 0.5 K/mm3 (0.0-0.7); EOS % 4.6 % (0.0-4.0); GRAN # 8.9 K/mm3 (1.4-6.5); GRAN % 78.4 % (42.2-75.2); HEMATOCRIT 43.4 % (42.0-52.0); HEMOGLOBIN 14.4 g/dl (13.5-18.0); LYMPH % 8.8 % (20.0-51.0); MEAN CELL VOLUME 88 fl (80.0-100.0); MEAN CORPUSCULAR HEMOGLOBIN 29 pg (27-31); MEAN CORPUSCULAR HGB CONC 33 g/dl (33.0-37.0); MEAN PLATELET VOLUME 10.5 fl (7.4-10.4); MONO # 0.7 K/mm3 (0.1-0.6); MONO % 5.7 % (1.7-9.3); PLATELET COUNT 602 K/mm3 (130-400); RED BLOOD COUNT 4.96 M/mm3 (4.20-5.60); REDCELL DISTRIBUTION WIDTH-CV 16.4 % (11.5-14.5)
[2024-09-28 07:07] LABS: ALBUMIN 3.7 g/dL (3.4-4.8); BILIRUBIN,TOTAL 0.6 mg/dL (0.2-1.2); CALCIUM 8.5 mg/dL (8.4-10.2); CREATININE, serum 0.99 mg/dL (0.72-1.25); MAGNESIUM 2.1 mg/dL (1.6-2.6); POTASSIUM 3.9 mEq/L (3.5-4.5)
[2024-09-28 07:10] LABS: TROPONIN-I 0.018 ng/mL (0.00-0.033)
[2024-09-28] MEDS ORDERED: LORazepam 2 MG/ML 1 ML VIAL IV ONE (07:15)
[2024-09-28] MEDS ORDERED: Iohexol 300 - 100 ML VIAL IV ONE (07:41)
[2024-09-28] MEDS ORDERED: NS 100 ML IV SCH (07:47)
[2024-09-28] MEDS ORDERED: ATIVAN 1MG T1 MG/TAB PO (07:59)
[2024-09-28 11:29] VITALS: BP 143/82; PULSE 72
== END 2024-09-28 11:29 | disposition home or self-care (01) ==
LOC: COL.ER 06:06
PROVIDERS: Emergency Medicine
DX: M54.9 Dorsalgia, unspecified (principal); F19.239 Other psychoactive substance dependence with withdrawal, unspecified; G20.A1 Parkinson's disease without dyskinesia, without mention of fluctuations; Z79.899 Other long term (current) drug therapy
CPT/HCPCS: J1920; J2060; J2270; Q9967